=== PATIENT | female | born 1995 ===

== ENCOUNTER 2023-07-22 23:18 | Emergency (ER) | payer MEDICAID | END 2023-07-22 23:53 | disposition home or self-care (01) | LOC: MW.ED 23:18 | DX: T19.2XXA Foreign body in vulva and vagina, initial encounter (principal); Z88.8 Allergy status to other drugs, medicaments and biological substances | CPT/HCPCS: 99283 ==

== ENCOUNTER 2023-09-28 10:03 | Emergency (ER) | payer MEDICAID ==
[2023-09-28] MEDS: Dexamethasone 10 MG/ML SDV PO ONE (10:16)
== END 2023-09-28 10:22 | disposition home or self-care (01) ==
LOC: MW.ED 10:03
DX: J02.9 Acute pharyngitis, unspecified (principal); Z88.8 Allergy status to other drugs, medicaments and biological substances
CPT/HCPCS: 99282; J8540; 99283